=== PATIENT | male | born 1995 | race Caucasian/White ===

== ENCOUNTER 2017-05-05 14:27 | Inpatient (IN) | payer BC, OTHER ==
[~2017-05-05] VITALS: Ht 177.8 cm; Wt 63.5 kg
[2017-05-05] MEDS ORDERED: LORAZEPAM 1 MG TABLET PO PRN ×2 (15:45)
[2017-05-05] MEDS ORDERED: MAG HYDROX/AL HYDROX/SIMETH 30 ML LIQUID UDC PO PRN (15:45)
[2017-05-05] MEDS ORDERED: BUPRENORPHINE HCL 2 MG TAB.SUBL SL PRN (15:45)
[2017-05-05] MEDS ORDERED: MIRALAX 17 GM POWD.PACK PO PRN (15:45)
[2017-05-05] MEDS ORDERED: DICYCLOMINE HCL 20 MG TABLET PO PRN (15:45)
[2017-05-05] MEDS ORDERED: LORAZEPAM 2 MG/1 ML VIAL IM PRN (15:45)
[2017-05-05] MEDS ORDERED: LOPERAMIDE HCL 2 MG CAPSULE PO PRN ×2 (15:45)
[2017-05-05] MEDS ORDERED: ONDANSETRON ODT 4 MG TAB.RAPDIS SL PRN (15:45)
[2017-05-05] MEDS ORDERED: ACETAMINOPHEN 325 MG TABLET PO PRN (15:45)
[2017-05-05] MEDS ORDERED: GABA600T2 PO (16:20)
[2017-05-05] MEDS ORDERED: TRAZ-144 PO (16:20)
[2017-05-05] MEDS ORDERED: CITA40TA22 PO (16:27)
[2017-05-05 16:51] LABS: BASOPHILS % (AUTO) 0.3 % (0.0-2.0); EOSINOPHILS % (AUTO) 0.5 % (0.0-7.0); HEMATOCRIT 44.4 % (40-50); HEMOGLOBIN 14.7 G/DL (14.0-18.0); LYMPHOCYTES # (AUTO) 2.2 K/UL (0.8-4.8); LYMPHOCYTES % (AUTO) 26.2 % (20.5-51.5); MEAN CORPUSCULAR HEMOGLOBIN 27.7 UUG (27.0-31.0); MEAN CORPUSCULAR HGB CONC 33 g/dL (32.0-37.0); MEAN CORPUSCULAR VOLUME 83.5 FL (82.0-92.0); MONOCYTES # (AUTO) 0.6 K/UL (0.1-1.30); MONOCYTES % (AUTO) 6.9 % (0.0-11.0); NEUTROPHILS # (AUTO) 5.4 K/UL (1.8-8.9); NEUTROPHILS % (AUTO) 66.1 % (38.5-71.5); PLATELET COUNT (AUTO) 205 K/UL (150-450); RED BLOOD CELL COUNT(AUTO) 5.32 MIL/UL (4.7-6.1); WHITE BLOOD COUNT (AUTO) 8.2 K/UL (4.0-11.2)
[2017-05-05 17:08] LABS: ALANINE AMINOTRANSFERASE 22 U/L (16-63); ALKALINE PHOSPHATASE 49 U/L (50-136); ASPARTATE AMINOTRANSFERASE 17 U/L (15-37); BILIRUBIN,TOTAL 0.6 mg/dL (0.2-1.0); CARBON DIOXIDE 30 mmol/L (21-32); CHLORIDE 105 mmol/L (98-107); GLUCOSE 80 mg/dL (74-106); MAGNESIUM 1.8 mg/dL (1.8-2.4); POTASSIUM 3.7 mmol/L (3.5-5.1); TOTAL PROTEIN, SERUM 6.7 g/dL (6.4-8.2); UREA NITROGEN, BLOOD 9 mg/dL (7-18)
[2017-05-05 17:13] LABS: ETHANOL < 3 MG/DL (0-0)
[2017-05-05] MEDS: BUPRENORPHINE HCL 2 MG TAB.SUBL SL SCH ×2 (17:22→20:32)
[2017-05-05] MEDS: LORAZEPAM 1 MG TABLET PO SCH ×2 (17:23→20:31)
[2017-05-05 17:27] LABS: *AMPHETAMINE, URINE NEGATIVE (NEGATIVE); *BARBITURATE, URINE NEGATIVE (NEGATIVE); *CANNABINOID, URINE POSITIVE (NEGATIVE); *COCCAINE, URINE NEGATIVE (NEGATIVE); *OPIATE, URINE POSITIVE (NEGATIVE); *PHENCYCLIDINE SCREEN,URINE NEGATIVE (NEGATIVE)
--- NOTE | 2017-05-05 17:57 | NUR ---
Admission Note VS: BP: 96/66 HR:85, SpO2: 99% RA, RR: 16, Temp: 98.3 Pain:2/10 (generalized body aches) Height: 5'10" Weight: 140 LB Allergies: BERNADINE Pt is a 21 y/o male admitted to [facility] on 05/05/17 at 1630 for Heroin and Xanax dependence under the care of Dr. Simpson. Pt denies suicidal and homicidal ideations at this time. Pt denies Chest Pain and SOB. Pt brought Gabapentin 600mg, Trazodone 50mg and Celexa tablets he takes daily. Upon assessment pt's skin integrity is intact. CIWA 8 and COWS 7 upon admission for withdrawal symptoms. NKA, A/Ox4 and able to answer questions necessary for the admission process. Pt is Full Code. VS WNL, Regular Diet. Pt reports Hx of anxiety and depression. Reports Hx of a alcohol abuse by his uncle, his father of heart failure. Pt denies having any seizures in the past. Pt denies having a PCP. Breathing is even and unlabored, SpO2 is 99% on RA. Pt ambulates with a steady gait. Pt reports regular daily BM when he isnt using and every other day when he uses heroin. LBM on 05/05/17 in the am. Pt reports smoking [address] Simpson has been notified, pt has been placed on a 5 day Ativan and 5 day Subutex taper. Urine has been collected for UDS. All needs have been met. Pt has been oriented to the room and the unit. All safety measures in place per hospital policy. Bed in lowest position, side rails up x2 and padded, call-light within reach. Will continue to monitor. Substance Abuse: Xanax: 2-4mg daily orally for 3 weeks. Last Use: 0.5mg in the morning of 05/05/17 Heroin: smokes 1g daily for 3 weeks. Last use: 1g around 6 am on 05/04/17 [place]: smokes 1 g daily for 3 weeks: Last use: 1g throughout the day on 05/05/17
--- NOTE | 2017-05-05 18:50 | NUR ---
End of Shift Endorsed pt to nightshift nurse. Pt is a 21 y/o male admitted to [facility] on 05/05/17 at 1630 for Heroin and Xanax dependence under the care of Dr. Simpson. Pt denies suicidal and homicidal ideations at this time. Pt denies Chest Pain and SOB. Pt brought Gabapentin 600mg, Trazodone 50mg and Celexa tablets he takes daily. Upon assessment pt's skin integrity is intact. CIWA 8 and COWS 7 upon admission for withdrawal symptoms. NKA, A/Ox4 and able to answer questions necessary for the admission process. Pt is Full Code. VS WNL, Regular Diet. Pt reports Hx of anxiety and depression. Reports Hx of a alcohol abuse by his uncle, his father of heart failure. Pt denies having any seizures in the past. Pt denies having a PCP. Breathing is even and unlabored, SpO2 is 99% on RA. Pt ambulates with a steady gait. Pt reports regular daily BM when he isnt using and every other day when he uses heroin. LBM on 05/05/17 in the am. Pt reports smoking [address] Simpson has been notified, pt has been placed on a 5 day Ativan and 5 day Subutex taper. Urine has been collected for UDS. All needs have been met. Pt has been oriented to the room and the unit. All safety measures in place per hospital policy. Bed in lowest position, side rails up x2 and padded, call-light within reach. Will continue to monitor.
--- NOTE | 2017-05-05 19:50 | NUR ---
Start of Shift Note: Report received from day shift nurse. Pt is a 21 yo male admitted today for medically-supervised withdrawal from opiates and benzodiazepines. Pt reports using heroin 1gm/day and Xanax 2-4mg/day for 3 weeks. Pt is on 5-day Subutex and Ativan tapers. Pt received with last COWS=11/CIWA=8, and no PRN medications were given during day shift. Pt reports NKDA/NKFA. Pt is a full code. Pt is on a regular diet. PMHx: anxiety, depression. Pt received in room, and reports anxiety, diaphoresis, chills, and nausea. Bed is in low position and locked, side rails up x2, call light within reach. Will continue to monitor.
[2017-05-05 20:00] VITALS: BP 104/61
[2017-05-05] MEDS: GABAPENTIN 300 MG CAPSULE PO SCH (20:31)
--- NOTE | 2017-05-05 20:34 | NUR ---
PRN Zofran: Patient complains of nausea, denies emesis. Administered PRN Zofran ODT as ordered. Will continue to monitor.
--- NOTE | 2017-05-05 21:05 | NUR ---
PRN Reassessment: Patient denies nausea at this time. PRN Zofran ODT effective.
[2017-05-06 00:23] VITALS: BP 117/69
[2017-05-06] MEDS: ONDANSETRON 4 MG/2 ML VIAL IM PRN ×2 (00:27→19:08)
--- NOTE | 2017-05-06 00:30 | NUR ---
PRN's Ativan 1mg, Zofran IM, and Clonidine: Patient complains of severe anxiety, nausea with emesis x1, and diaphoresis. CIWA is 13. Administered PRN Ativan 1mg PO, PRN Zofran IM, and PRN Clonidine as ordered. Will continue to monitor.
[2017-05-06] MEDS: CLONIDINE HCL 0.1 MG TABLET PO PRN ×2 (00:34→20:32)
--- NOTE | 2017-05-06 01:00 | NUR ---
PRN Reassessment: Patient denies any additional episodes of emesis and reports that he is no longer nauseous. PRN Zofran IM effective.
--- NOTE | 2017-05-06 01:30 | NUR ---
PRN Reassessment: Patient reports that he is feeling less anxious, and that he is no longer nauseous. Patient noted with decrease in diaphoresis. CIWA decreased from 13 to 4 one hour after PRN Ativan 1mg and PRN Clonidine administration.
--- NOTE | 2017-05-06 04:00 | NUR ---
V/S Refused, COWS/CIWA Deferred: Patient refuses ordered 04:00 vital signs for sleep. COWS and CIWA are deferred until patient is awake. All safety precautions are in place. Will continue to monitor. Addendum: 05/06/17 at 0416 by SACHIN MARCH RN Amended: Links added.
--- NOTE | 2017-05-06 06:52 | NUR ---
End of Shift Note: Pt is a 21 yo male admitted to [facility] on 05/05/2017 for medically-supervised withdrawal from opiates and benzodiazepines. Pt reported a PMHx of anxiety and depression. Pt is a full code. Pt reports NKDA/NKFA. Pt is on a regular diet. Pt reported using heroin 1gm/day and Xanax 2-4mg/day for 3 weeks, and was placed on 5-day Subutex and Ativan tapers. Scheduled medication regime managed s/s of withdrawal this shift, in addition to PRN Ativan for elevated CIWA, PRN Zofran IM and ODT for nausea and vomiting, and PRN Clonidine for anxiety. Last COWS=10 at 00:00 and CIWA=4 at 01:30. V/S stable throughout shift. Total fluid intake this shift: 796 ml; output: urine x 2 and BM x 0. Pt is currently in bed, and slept 9 hours this shift. All needs have been attended and met. Pt endorsed to day shift nurse.
--- NOTE | 2017-05-06 07:10 | NUR ---
Start of Shift Endorsement received from nightshift nurse. Pt is a 21 y/o male admitted for Heroin and Xanax dependence. Pt has been placed on a Modified Subutex and Ativan taper by Dr. Simpson. Pt is tolerating the taper, moderately withdrawing AEB COWS 10, CIWA 4 at midnight. Pt reported one episode of emesis. PT received Zofran x2. PT reports medication was effective. Pt also received PRN Ativan and Clonidine for CIWA 13. Pt reports sleeping 9 hours and reports wanting to sleep because he feels tired. VS WNL. Full Code. PT is alert and oriented x4. Pt is in STABLE condition at this time. Remains compliant with medication and diet regimen. All needs have been met, All safety measures in place per hospital policy. Bed in lowest position, side rails up x2, call-light within reach. Will continue to monitor
[2017-05-06 08:00] VITALS: BP 113/70
[2017-05-06] MEDS: GABAPENTIN 300 MG CAPSULE PO SCH ×3 (08:49→20:32)
[2017-05-06] MEDS: BUPRENORPHINE HCL 2 MG TAB.SUBL SL SCH ×3 (08:49→20:32)
[2017-05-06] MEDS: MULTIVITAMINS,THERAPEUTIC TABLET PO SCH (08:50)
[2017-05-06] MEDS: LORAZEPAM 1 MG TABLET PO SCH ×3 (08:50→20:32)
[2017-05-06] MEDS ORDERED: TUBERCULIN,PURIF.PROT.DERIV. 5 TU/0.1 ML TEST ID ONE (09:00)
[2017-05-06] MEDS ORDERED: Medication Not On Formulary EA (Gabapentin 1 TAB) PO SCH (09:45)
[2017-05-06] MEDS ORDERED: GABAPENTIN 300 MG CAPSULE PO SCH (10:15)
[2017-05-06] MEDS: CITALOPRAM 20 MG TABLET PO SCH (10:43)
[2017-05-06 12:00] VITALS: BP 108/70
--- NOTE | 2017-05-06 13:21 | NUR ---
Therapist prompted client about group times. Client stated he will start attending groups when he feels better.
[2017-05-06 16:00] VITALS: BP 118/75
--- NOTE | 2017-05-06 17:21 | NUR ---
Endorsed pt to Jyoti.
--- NOTE | 2017-05-06 17:22 | NUR ---
ASSUMED CARE Assumed care for patient, all pertinent information discussed with primary nurse, will continue to monitor.
--- NOTE | 2017-05-06 19:05 | NUR ---
END OF SHIFT/PRN ZOFRAN Patient alert and oriented x4, compliant with therapeutic plan of care. Patient with admitting Dx: opiate/BZO dependence, continues on 5 day Subutex and 5 day Ativan taper as ordered, well tolerated, no ASE noted. Assumed care for patient at 1722. Per primary nurse patient with last cow score of: 8 and ciwa score of:7. Patient was administered Zofran IM injection for episode of vomiting and nausea during shift, endorsed to fax machine repairer nurse to reassess effectiveness of medication. Patient encouraged adequate PO fluid intake as tolerated. Encouraged to attend group therapies/sessions to learn new coping skills to prevent relapse. Denies any SI/HI. All needs met and rendered, call light kept with in reach, safety measures in place. Patient endorsement report given to fax machine repairer nurse.
--- NOTE | 2017-05-06 19:35 | NUR ---
PRN Zofran Reassessment: Patient denies nausea at this time, reports no additional episodes of emesis. PRN Zofran IM effective.
[2017-05-06 20:00] VITALS: BP 132/84
--- NOTE | 2017-05-06 20:00 | NUR ---
Start of Shift Note: Report received from day shift nurse. Pt is a 21 y/o male admitted on 05/05/2017 for medically-supervised withdrawal from benzodiazepines and opiates. Pt reports using 1gm heroin and 2-4mg Xanax daily for 3 weeks. Pt is on 5-day Ativan and Subutex tapers. Pt received with last COWS=8/CIWA=7, and no PRN medications were given during day shift. Pt is a full code. Pt reports NKDA/NKFA. Pt is on a regular diet. PMHx: anxiety and depression. Pt received in room, and reports anxiety, back and neck pain, myalgia. Bed is in low position and locked, side rails up x2, call light within reach. Will continue to monitor.
[2017-05-06] MEDS: METHOCARBAMOL 750 MG TABLET PO PRN (20:32)
[2017-05-06] MEDS: TRAZODONE 50 MG TABLET PO SCH (20:32)
[2017-05-06] MEDS: IBUPROFEN 600 MG TABLET PO PRN (20:32)
--- NOTE | 2017-05-06 20:35 | NUR ---
PRN's Motrin, Robaxin, and Clonidine: Patient complains of myalgia and 8/10 pain in back and neck. Administered PRN Robaxin and PRN Motrin as ordered. Patient complains of anxiety. Administered PRN Clonidine as ordered. Will continue to monitor.
--- NOTE | 2017-05-06 21:35 | NUR ---
PRN Reassessment: Patient denies pain at this time. PRN Motrin and PRN Robaxin effective. Patient reports mild relief of anxiety with PRN Clonidine administration.
[2017-05-06] MEDS: diphenhydrAMINE 50 MG CAPSULE PO PRN (23:05)
[2017-05-06] MEDS: HYDROXYZINE PAMOATE 25 MG CAPSULE PO PRN (23:05)
--- NOTE | 2017-05-06 23:05 | NUR ---
PRN Vistaril and PRN Benadryl: Patient reports that he is anxious and unable to sleep. Administered PRN Vistaril and PRN Benadryl as ordered. Will continue to monitor.
--- NOTE | 2017-05-07 | NUR ---
V/S Refused, COWS & CIWA Deferred: Pt refuses 00:00 vital signs for sleep. COWS and CIWA are deferred until patient is awake. All safety precautions are in place. Will continue to monitor. Addendum: 05/07/17 at 0313 by SACHIN MARCH RN Amended: Links added.
--- NOTE | 2017-05-07 00:05 | NUR ---
PRN Reassessment: Patient is in bed with eyes closed. Respirations are even and unlabored. No s/s of acute distress noted. PRN Vistaril and PRN Benadryl effective AEB pt's ability to rest.
[2017-05-07 04:00] VITALS: BP 118/72
--- NOTE | 2017-05-07 07:00 | NUR ---
End of Shift Note: Pt is a 21 y/o male admitted to [facility] on 05/05/2017 for medically-supervised withdrawal from benzodiazepines and opiates. Pt reported a PMHx of anxiety and depression. Pt is a full code. Pt reports NKDA/NKFA. Pt is on a regular diet. Pt reported using 1gm heroin and 2-4mg Xanax daily for 3 weeks, and was placed on 5-day Ativan and Subutex tapers. Scheduled medication regime managed s/s of withdrawal this shift, in addition to PRN Zofran IM for nausea/vomiting, PRN Robaxin for myalgia, PRN Motrin for back pain, and PRN Clonidine and PRN Vistaril for anxiety. Last COWS=2/CIWA=6 at 04:00. V/S stable throughout shift. Total fluid intake this shift: 796 ml; output: urine x 2 and BM x 0. PRN Benadryl was given for insomnia, which was not effective as pt slept only 3 hours this shift. Pt is currently in bed, all needs have been attended and met. Pt endorsed to day shift nurse.
--- NOTE | 2017-05-07 07:20 | NUR ---
Start of Shift note Patient is a 21 year old male admitted for heroin and xanax dependence on 05/05/17. He has no history of seizures and is on day 3 of a five day Subutex and Ativan taper. Patient has past medical history of Anxiety and depression as well as Hepatitis C. He has NKA, is a full code and on a regular diet. Patient last COWS 2 CIWA 6 reported by slot shift manager. Patient currently resting in bed, with no complaints offered. Call light in reach, bed on lowest position and locked with 2 side rails up. Will continue to monitor.
[2017-05-07 08:00] VITALS: BP 113/73
[2017-05-07] MEDS ORDERED: BUPRENORPHINE HCL 2 MG TAB.SUBL SL SCH (09:00)
[2017-05-07] MEDS: CITALOPRAM 20 MG TABLET PO SCH (09:56)
[2017-05-07] MEDS: LORAZEPAM 1 MG TABLET PO SCH ×4 (09:57→20:23)
[2017-05-07] MEDS: GABAPENTIN 300 MG CAPSULE PO SCH ×3 (09:57→20:24)
[2017-05-07] MEDS: MULTIVITAMINS,THERAPEUTIC TABLET PO SCH (09:58)
[2017-05-07 12:00] VITALS: BP 112/67
[2017-05-07 14:09] LABS: HEPATITIS B SURFACE AG Negative (Negative)
[2017-05-07] MEDS: IBUPROFEN 600 MG TABLET PO PRN ×2 (14:42→22:04)
[2017-05-07] MEDS: METHOCARBAMOL 750 MG TABLET PO PRN ×2 (14:42→23:22)
[2017-05-07] MEDS: BUPRENORPHINE HCL 2 MG TAB.SUBL SL SCH ×2 (14:42→20:24)
--- NOTE | 2017-05-07 14:42 | NUR ---
PRN medication Patient with C/O back pain of a 04/11. Patient requested and was given PRN Robaxin and Ibuprofen. is aware.
--- NOTE | 2017-05-07 15:42 | NUR ---
Reassessment of patient Patient reports minimal effectiveness with Robaxin and Motrin. With current pain a 5. Patient states he is comfortable and does not want any further medication at this time. Dr Simpson aware.
[2017-05-07 16:00] VITALS: BP 118/70
--- NOTE | 2017-05-07 17:00 | NUR ---
PRN medication administration Patient with current heart rate 120. Patient reports anxiety and administered PRN Vistaril per MD order. Dr Simpson aware. Patient without any other physical complaints. Will continue to monitor.
[2017-05-07] MEDS: HYDROXYZINE PAMOATE 25 MG CAPSULE PO PRN ×2 (17:19→23:22)
--- NOTE | 2017-05-07 18:00 | NUR ---
Reassessment of patient Patient returned to unit after smoking cigarette. appears to continue to display anxiety, and patients HR assessed at 125. Patient encouraged to increase fluids and rest and will reassess again in 30 minutes.
--- NOTE | 2017-05-07 18:28 | NUR ---
Reassessment of patient. Patient resting in bed with no current physical complaints Patients HR reassessed at 100. No physical complaints offered. Encouraged patient to continue with relaxation and hydration.
--- NOTE | 2017-05-07 19:09 | NUR ---
End of shift note Pt was admitted for opiate and benzo dependence. Pt has a PMHx of anxiety and depression. Pt is on an ativan and subutex taper and tolerating well. Pt had a recent COWS of 2 and CIWA of 2 at 1600. During the shift the pt had PRN motrin, robaxin and vistaril with some effectiveness. Pt is currently pacing the unit, pt has no complaints at this time. Pt refused breakfast and lunch, ate 100% of dinner, drank 1100ml of fluids and had 2 voids during the shift. SBAR report to be given to oncoming shift. All needs addressed at this time.
[2017-05-07 20:00] VITALS: BP 118/81
--- NOTE | 2017-05-07 20:00 | NUR ---
START OF SHIFT Received report from day shift nurse. Pt is walking around the unit. He is a 21 yo male admitted to [facility] on 05/05 for opiate and BZD dependence. He is A&O x4 and ambulatory. NKA, full code status, and on a regular diet. He has a PMH of anxiety and depression. On admission he reported using heroin 1 gram per day, Xanax 2-4mg per day, and marijuana 1 gram per day. 5 day subutex and 5 day ativan tapers started 05/05. He reports that he has been pacing around the unit due to anxiety and has lower back ache. He is observed to have a flat affect, moist skin, and fine tremors. Encouraged relaxation. Tapers due tonight. Fall and seizure precautions in place. Bed is down with call light in reach.
[2017-05-07] MEDS: TRAZODONE 50 MG TABLET PO SCH (20:23)
[2017-05-07] MEDS: CLONIDINE HCL 0.1 MG TABLET PO SCH (20:23)
[2017-05-07] MEDS: diphenhydrAMINE 50 MG CAPSULE PO PRN (22:04)
--- NOTE | 2017-05-07 22:05 | NUR ---
PRN Motrin and Benadryl Pt reports low back ache and neck ache 5/10. He also reports inability to sleep. PRN Motrin and Benadryl administered.
--- NOTE | 2017-05-07 23:05 | NUR ---
PRN Motrin and Benadryl reassessment PRN Motrin sightly effective. Pt reports back and neck ache reduced to 4/10. He has not yet been able to fall asleep.
[2017-05-07 23:20] VITALS: BP 117/77
--- NOTE | 2017-05-07 23:23 | NUR ---
PRN Robaxin and Vistaril Pt reports low back ache and neck ache 4/10. He also reports feeling anxious, restless, and unable to fall asleep. PRN Robaxin and Vistaril administered.
[2017-05-08] VITALS: BP 117/77
--- NOTE | 2017-05-08 04:00 | NUR ---
COWS/CIWA/VS PATIENT ASLEEP. COWS/CIWA UNABLE TO ASSESS. RESPIRATION EVEN AND UNLABORED. NO S/S OF DISTRESS.SAFETY MEASURES IN PLACE. CALL LIGHT IN REACH. WILL CONTINUE TO MONITOR Addendum: 05/09/17 at 0649 by FRANCIA VELÁSQUEZ LVN ERROR: CHARTING
--- NOTE | 2017-05-08 04:00 | NUR ---
0400 Vitals refused/COWS and CIWA deferred Pt refused to be woken for 0400 vitals. He is lying in bed resting with eyes closed. Respirations even and unlabored. COWS and CIWA ordered Q4HWA. Safety measures in place.
--- NOTE | 2017-05-08 07:09 | NUR ---
END OF SHIFT Report provided to day shift nurse. Pt is lying in bed resting. He is a 21 yo male admitted to [facility] on 05/05 for opiate and BZD dependence. He is A&O and ambulatory. NKA, full code status, and on a regular diet. He has a PMH of anxiety and depression. Upon admission he admitted to using heroin 1 gram per day, Xanax 2-4mg per day, and marijuana 1 gram per day. 5 day subutex and 5 day ativan tapers started 05/05. Pt had difficulty sleeping. PRN Motrin, Robaxin, Vistaril, and Benadryl administered. Last COWS 4 and CIWA 3. He drank 1000mL and slept for 4 hours. Fall and seizure precautions in place. Bed is down with call light in reach.
--- NOTE | 2017-05-08 07:10 | NUR ---
Start of Shift Notes: Received patient in his room. Alert and verbally responsive. Oriented x 4. Able to make his needs known. Respirations even and unlabored. No SOB noted. Skin warm and dry to touch. Abdomen soft and non-distended with (+) BS in all 4 quadrants. No complains of N/V/D or constipation noted. No complains of abdominal cramps noted at this time. Bladder non-distended. No complains of dysuria noted. Voids independently. Ambulatory ad ne with steady gait.. Patient is a 21 year old male admitted for opiat, BZO dependence who was palced on a 5-day Subtuex and 5-day Ativan taper as ordered. NO adverse reactions noted. Has past medical hx of anxiety, depression, NKA. FULL CODE. Regular diet. On fall and seizure precautions. PRN Motrin, Robaxin, Vistaril, Benadryl were given during the night. Slept for 4 hours. Last COWS 4/CIWA 3. On fall and seizure precautions. Educated patient on the current plan of care for the day and his medication regimen. Encouraged oral fluid intake and encouraged group participation to learn new skills to prevent relapse. All needs met and attended. Will continue to monitor closely.
[2017-05-08 08:00] VITALS: BP 100/58
[2017-05-08] MEDS: CLONIDINE HCL 0.1 MG TABLET PO SCH ×2 (08:23→20:44)
[2017-05-08] MEDS: LORAZEPAM 1 MG TABLET PO SCH ×3 (08:23→20:44)
[2017-05-08] MEDS: BUPRENORPHINE HCL 2 MG TAB.SUBL SL SCH ×3 (08:23→20:44)
[2017-05-08] MEDS: GABAPENTIN 300 MG CAPSULE PO SCH ×3 (08:23→20:43)
[2017-05-08] MEDS: CITALOPRAM 20 MG TABLET PO SCH (08:23)
[2017-05-08] MEDS: MULTIVITAMINS,THERAPEUTIC TABLET PO SCH (08:23)
[2017-05-08 12:00] VITALS: BP 110/67
--- NOTE | 2017-05-08 12:29 | NUR ---
Psych MD Visit: Patient seen and examined by Dr. Forrest at this time. Informed MD of patient's trending sleep patterns of inability to sleep well during the night. Per MD, he will enter in orders.
--- NOTE | 2017-05-08 13:28 | NUR ---
Clinician encouraged client to attend the afternoon group. Client asked if he was excused from the morning group because he was sleeping and he wants his cigarettes. Client states he will attend group at 3:30
[2017-05-08] MEDS: METHOCARBAMOL 750 MG TABLET PO PRN ×2 (14:33→22:39)
[2017-05-08] MEDS: IBUPROFEN 600 MG TABLET PO PRN (14:33)
--- NOTE | 2017-05-08 14:33 | NUR ---
Ibuprofen 600 mg Po given/Robaxin 750 mg PO given: Patient noted with complain of 6/10 headache and 6/10 generalized muscle aches and pains related to withdrawal symptoms. Medicated patient with Ibuprofen 600 mg PO and Robaxin 750mg PO after non-pharmacological interventions were ineffective. Will continue to monitor for effectiveness.
--- NOTE | 2017-05-08 15:33 | NUR ---
Re-assessment: Per patient, PRN Robaxin was effective in reducing patient's body aches and pains and headache. Repots PL to be 2/10.
[2017-05-08 16:00] VITALS: BP 115/83
--- NOTE | 2017-05-08 19:06 | NUR ---
End of Shift Notes: Patient continues to be on 5-day Subutex and 5-day Ativan taper as ordered. No adverse reactions noted. Patient is tolerating taper well. VS monitored closely q 4 hours. No significant abnormalities noted. Patients withdrawal symptoms were closely monitored. Patients initial COWS 4/CIWA 3, patient presented with anxiety, agitation, chills and hot flashes. Last COWS 3/CIWA 2. Per patient, Subutex and Ativan has been helping him with his withdrawal symptoms. Compliant with care and treatment. Requires encouragement to participate in group and activities. All needs met and attended. Will continue to monitor closely.
[2017-05-08 20:00] VITALS: BP 122/79
--- NOTE | 2017-05-08 20:00 | NUR ---
START OF SHIFT NOTE PATIENT ALERT AND ORIENTED X 4. RESPIRATION EVEN AND UNLABORED . PATIENT C/O UNABLE TO PASS STOOL, REPORTS ANXIOUS , SWEATING AND ABDOMINAL CRAMPING. RECEIVED REPORT FROM DAY SHIFT NURSE. PATIENT IS A 21 YEAR OLD MALE, ADMITTED FOR HEROIN AND XANAX DEPENDENCE. PATIENT IS ON 4TH DAY OF HIS 5 DAY ATIVAN AND 5 DAY SUBUTEX TAPER. PATIENT IS FULL CODE, REGULAR DIET AND NO KNOWN ALLERGY. PATIENT REPORTS PMH OF ANXIETY AND DEPRESSION. PATIENT DOES NOT HAVE SEIZURE HISTORY. PATIENT WAS GIVEN PRN MOTRIN AND ROBAXIN. TRAZADONE WAS INCREASED. SKIN INTACT. ON FALL PRECAUTION. SAFETY MEASURES IN PLACE. CALL LIGHT IN REACH. WILL CONTINUE TO MONITOR.
[2017-05-08] MEDS: TRAZODONE 100 MG TABLET PO SCH (20:44)
--- NOTE | 2017-05-08 20:45 | NUR ---
PRN MIRALAX ADMINISTRATION PATIENT C/O CONSTIPATION. PRN MIRALAX GIVEN AND ENCOURAGE FLUIDS. WILL MONITOR FOR EFFECTIVENESS
[2017-05-08] MEDS: HYDROXYZINE PAMOATE 25 MG CAPSULE PO PRN (22:39)
--- NOTE | 2017-05-08 22:39 | NUR ---
PRN ROBAXIN AND VISTARIL GIVEN PATIENT C/O BACK PAIN 6/10 AND MILD ANXIETY. PRN ROBAXIN AND VISTARIL GIVEN. WILL MONITOR FOR EFFECTIVENESS
--- NOTE | 2017-05-08 23:39 | NUR ---
PRN ROBAXIN AND VISTARIL RE-ASSESSMENT PATIENT'S ANXIETY SUBSIDED. LESS ANXIOUS. PAIN LEVEL IS NOW 2/10. ROBAXIN AND VISTARIL HELPFUL. WILL CONTINUE TO MONITOR
[2017-05-09] VITALS: BP 94/56
--- NOTE | 2017-05-09 04:00 | NUR ---
COWS/CIWA/VS PATIENT ASLEEP. COWS/CIWA UNABLE TO ASSESS. RESPIRATION EVEN AND UNLABORED. NO S/S OF DISTRESS.SAFETY MEASURES IN PLACE. CALL LIGHT IN REACH. WILL CONTINUE TO MONITOR
--- NOTE | 2017-05-09 07:05 | NUR ---
Start of Shift Endorsement received from nightshift nurse. Pt is a 21 y/o male admitted for Heroin and Xanax dependence. Pt has been placed on a Modified Subutex and Ativan taper by Dr. Simpson. Pt is tolerating the taper, mildly withdrawing AEB COWS 2, CIWA 2 at midnight. Pt reports generalized body aches throughout the night. Pt received PRN Miralax, Robaxin and Vistaril. Pt reports sleeping 6 hours . VS WNL. Full Code. PT is alert and oriented x4. Pt is in STABLE condition at this time. Remains compliant with medication and diet regimen. All needs have been met, All safety measures in place per hospital policy. Bed in lowest position, side rails up x2, call-light within reach. Will continue to monitor
--- NOTE | 2017-05-09 07:08 | NUR ---
PRN MIRALAX RE-ASSESSMENT PATIENT HAD BM DURING SHIFT. MIRALAX EFFECTIVE. CONTINUE TO ENCOURAGE FLUIDS
--- NOTE | 2017-05-09 07:18 | NUR ---
END OF SHIFT NOTE PATIENT REMAIN ALERT AND ORIENTED X 4. RESPIRATION EVEN AND UNLABORED . PATIENT C/O UNABLE TO PASS STOOL, REPORTS ANXIOUS , SWEATING AND ABDOMINAL CRAMPING BEGINNING OF SHIFT. PATIENT CONTINUE ON ATIVAN AND SUBUTEX TAPER, TOLERATED WELL AND NO ADVERSE REACTION. PATIENT WAS GIVEN PRN MIRALAX, ROBAXIN AND VISTARIL. MIRALAX EFFECTIVE. PATIENT HAD BM DURING SHIFT. ENCOURAGE FLUIDS . SKIN INTACT. ON FALL PRECAUTION. SAFETY MEASURES IN PLACE. CALL LIGHT IN REACH. WILL CONTINUE TO MONITOR. SLEPT 6 HOURS. FLUID INTAKE 1,210 ML. VOIDED X 3 . NO BM. LAST COWS 2 AND CIWA 1 .
[2017-05-09 08:00] VITALS: BP 108/67
[2017-05-09] MEDS: CLONIDINE HCL 0.1 MG TABLET PO SCH ×2 (09:11→20:40)
[2017-05-09] MEDS: CITALOPRAM 20 MG TABLET PO SCH (09:11)
[2017-05-09] MEDS: BUPRENORPHINE HCL 2 MG TAB.SUBL SL SCH ×2 (09:11→20:41)
[2017-05-09] MEDS: GABAPENTIN 300 MG CAPSULE PO SCH ×3 (09:11→20:40)
[2017-05-09] MEDS: MULTIVITAMINS,THERAPEUTIC TABLET PO SCH (09:11)
[2017-05-09] MEDS: IBUPROFEN 600 MG TABLET PO PRN (09:11)
[2017-05-09] MEDS: LORAZEPAM 1 MG TABLET PO SCH ×2 (09:11→20:39)
[2017-05-09 12:00] VITALS: BP 120/75
[2017-05-09] MEDS: METHOCARBAMOL 750 MG TABLET PO PRN ×2 (12:21→20:54)
[2017-05-09] MEDS: HYDROXYZINE PAMOATE 25 MG CAPSULE PO PRN ×2 (12:21→22:44)
[2017-05-09 16:00] VITALS: BP 113/71
--- NOTE | 2017-05-09 18:48 | NUR ---
End of Shift Endorsement given to nightshift nurse. Pt is a 21 y/o male admitted for Heroin and Xanax dependence. Pt has been placed on a Modified Subutex and Ativan taper by Dr. Simpson. Pt is tolerating the taper, moderately withdrawing AEB COWS 6, CIWA 3 at 1600. Pt reports generalized body aches and anxiety. Pt received PRN Robaxin and Vistaril. Pt participated in groups and activities. Educated pt on s/e of medications and encouraged pt to drink more fluids. Educated pt on deep breathing techniques to help relieve mild to moderate anxiety. Intake: 1700ml, Void x5, BM x0 . VS WNL. Full Code. PT is alert and oriented x4. Pt is in STABLE condition at this time. Remains compliant with medication and diet regimen. All needs have been met, All safety measures in place per hospital policy. Bed in lowest position, side rails up x2, call-light within reach. Will continue to monitor
[2017-05-09 20:00] VITALS: BP 116/79
--- NOTE | 2017-05-09 20:00 | NUR ---
1999 Patient received awake, alert and just returning back o his room # [id number] from [facility] in recreation room. Gait is steady. Patient responds to nurse's greeting and introduction with good eye contact but very flat, " Hello, how are you?" Patient's color is pink and his skin is clean, warm, dry and intact. Patient is oriented to person, place, day, date, and his personal situation. Reoriented to time. Patient states, " I get confused about the time sometimes and there's no clock in here". Patient states that he regularly attends [facility] and he has been eating his regular diet trays and taking various fluids ad ne with no gastric issues. Patient denies any pain or other discomforts at this time and he voices no requests for anything. Vital signs are: 97.9-116-16 116/79, O2 Sat 98%, COWS 6, CIWA 4. Patient was admitted on 05/05/17 for: Heroin, Xanax and Marijuana withdrawal and he is currently on a 5-Day Ativan medication taper and a 5-Day Subutex medication taper for withdrawal symptoms, and he has apparently been tolerating these medications well. Patient is cooperative and verbally appropriate when interacting with nurse, though mood/affect is both somewhat withdrawn and anxious at the same time. Bed is locked and in lowest position, bed rails are up X 1 and call light within patient's easy reach.
[2017-05-09] MEDS: TRAZODONE 100 MG TABLET PO SCH (20:40)
--- NOTE | 2017-05-09 20:54 | NUR ---
PRN MEDICATION: Prn Robaxin 750 mg p.o. given per request for c/o back and neck pain 6-7/10 pain scale.
--- NOTE | 2017-05-09 21:54 | NUR ---
REASSESSMENT PRN MEDICATION: Patient is downstairs on hospital patio for smoke break. Unable to assess patient at this time.
--- NOTE | 2017-05-09 22:44 | NUR ---
PRN MEDICATION: Prn Vistaril 25 mg p.o. given per request for c/o anxiety.
--- NOTE | 2017-05-10 | NUR ---
Patient is downstairs on hospital patio and he does not want vital signs to be done at this time.
--- NOTE | 2017-05-10 04:00 | NUR ---
Patient refused to be awakened for V/S be done at this time.
--- NOTE | 2017-05-10 06:30 | NUR ---
0630 Patient slept a total of 4 hours and he had 3 voids and no stools. Total intake was 1,210 ml p.o. Prn medications given noted separately per floor protocol. V/SS afebrile, last COWS 6 , last CIWA 4 at 1999. Patient is presently sleeping comfortably in stable condition with eyes closed and respirations quiet, even, unlabored at 12.
--- NOTE | 2017-05-10 07:22 | NUR ---
BEGINNING OF SHIFT Patient endorsement report received from assistant casino shift manager nurse, all pertinent information discussed. patient is a 21 year old male admitted on: 05/05/2017, with admitting Dx: Opiate/BZO dependence. Patient with past medical history of: Anxiety, and depression. Patient with substance use of: Heroin 1 gram daily for 3 weeks, Xanax 2-4mg daily for 3 weeks, and marijuana 1 gram daily for 3 weeks. Patient placed on a 5 day Ativan and 5 day Subutex taper as ordered, patient currently on day 5 of taper, will monitor closely during shift. Seizure and Fall precautions observed at all times. Patient skin is intact, Patient Received PRN: Robaxin and Vistaril during assistant casino shift manager, per assistant casino shift manager medication effective, last ciwa score of: 4, and last cow score of: 6. Patient slept for 7 hours. Patient continues under close observation. Safety measures in place. will continue to monitor.
[2017-05-10 08:09] VITALS: BP 100/67
[2017-05-10] MEDS: CITALOPRAM 20 MG TABLET PO SCH (08:27)
[2017-05-10] MEDS: MULTIVITAMINS,THERAPEUTIC TABLET PO SCH (08:27)
[2017-05-10] MEDS: GABAPENTIN 300 MG CAPSULE PO SCH ×3 (08:27→20:56)
[2017-05-10 08:28] VITALS: BP 101/72
[2017-05-10] MEDS: CLONIDINE HCL 0.1 MG TABLET PO SCH ×2 (08:29→20:56)
[2017-05-10] MEDS ORDERED: BUPRENORPHINE HCL 2 MG TAB.SUBL SL SCH (09:00)
[2017-05-10] MEDS: METHOCARBAMOL 750 MG TABLET PO PRN (11:50)
--- NOTE | 2017-05-10 11:50 | NUR ---
PRN ROBAXIN Patient c/o muscle aches and back pain 04/11, administered Robaxin as ordered, will monitor effectiveness of medication.
--- NOTE | 2017-05-10 12:50 | NUR ---
ROBAXIN REASSESSMENT Patient reports medication effective, pain level 0/10 will continue to monitor.
[2017-05-10 13:11] VITALS: BP 107/70
[2017-05-10] MEDS ORDERED: METH-406 PO (15:27)
[2017-05-10] MEDS ORDERED: HYDR-3895 PO (15:27)
[2017-05-10] MEDS ORDERED: CLON0.1T14 PO (15:27)
[2017-05-10 17:04] LABS: *AMPHETAMINE, URINE NEGATIVE (NEGATIVE); *BARBITURATE, URINE NEGATIVE (NEGATIVE); *CANNABINOID, URINE POSITIVE (NEGATIVE); *COCCAINE, URINE NEGATIVE (NEGATIVE); *OPIATE, URINE NEGATIVE (NEGATIVE); *PHENCYCLIDINE SCREEN,URINE NEGATIVE (NEGATIVE)
[2017-05-10 17:21] VITALS: BP 111/70
--- NOTE | 2017-05-10 19:17 | NUR ---
END OF SHIFT Patient alert and oriented x4, vital signs stable during shift. patient is a 21 year old male admitted on: 05/05/2017, with admitting Dx: Opiate/BZO dependence. Patient with past medical history of: Anxiety, and depression. Patient with substance use of: Heroin 1 gram daily for 3 weeks, Xanax 2-4mg daily for 3 weeks, and marijuana 1 gram daily for 3 weeks. Patient completed 5 day Ativan and 5 day Subutex taper as ordered, well tolerated, no ASE noted. Encouraged adequate PO fluid intake as tolerated. 0900 assessment patient presented with mild bone and joint aches, irritable, anxiety, and mild agitation with cow score of: 3 and ciwa score of: 4; 1300 assessment patient presented with: heart rate of 98, mild anxiety with cow score of: 2 and ciwa score of: 1; 1700 assessment patient presented with: heart rate of 94, mild anxiety, with cow score of: 2 and ciwa score of: 1. Patient received PRN: Robaxin during shift, medication effective. Patient is scheduled to discharge tomorrow, noted self motivated towards sobriety. Urine drug screen collected. Encouraged to attend group therapies/sessions to learn new coping skills to prevent relapse. Safety measures i place, call light kept with in reach. Patient endorsed to night warehouse manager nurse, all pertinent information discussed.
[2017-05-10 20:00] VITALS: BP 124/77
--- NOTE | 2017-05-10 20:00 | NUR ---
1999 Patient received awake, alert and just returning to his room # 314 from [facility]. Gait is steady and brisk. Patient responds to nurse's greeting with flat, " Hi". Patient is oriented to person, place, day, date, time and his personal situation. Patient's color is pink and his skin is clean, warm, dry and intact. Patient states that he is eating his regular diet trays and taking various fluids ad ne with no gastric issues at this time. Patient denies any pain or other discomforts and offers no requests for anything at this time. Patient states that he has been attending all [employer] groups and has been compliant with all that is asked of him here. Vital signs are: 98.6-88-16 124/77, O2 Sat 98%, COWS 6 CIWA 4 . Patient was admitted on 05/05/17 for: Heroin, Xanax and Marijuana withdrawal and he has completed both his 5-Day Ativan and 5-Day Subutex medication tapers at this time. Patient is scheduled to be discharged tomorrow AM to a rehab facility. Patient is cooperative and verbally appropriate when interacting with nurse, though his mood/affect is mildly anxious. Bed is locked and in lowest position, bed rails are up X 1 and call light within patient's easy reach.
[2017-05-10] MEDS: TRAZODONE 100 MG TABLET PO SCH (20:56)
[2017-05-10] MEDS: HYDROXYZINE PAMOATE 25 MG CAPSULE PO PRN (20:57)
--- NOTE | 2017-05-10 20:57 | NUR ---
PRN MEDICATIONS: Prn Bentyl 20 mg p.o. given per c/o stomach cramps and Prn Vistaril 25 mg p.o. given per request for c/o anxiety.
--- NOTE | 2017-05-10 21:57 | NUR ---
REASSESSMENT PRN MEDICATIONS: Patient is downstairs on hospital patio for smoke break. Unable to reassess patient at this time.
--- NOTE | 2017-05-11 | NUR ---
Patient refused to be awakened for vital signs to be done at this time.
--- NOTE | 2017-05-11 04:00 | NUR ---
Patient refused to be awakened for vital signs to be done at this time.
--- NOTE | 2017-05-11 06:30 | NUR ---
0630 Patient slept a total of 7 hours and he had 3 voids and no stools. Total intake was 1,450 ml p.o. Prn medications given noted separately per floor protocol. V/SS afebrile, last COWS 6, last CIWA 4 at 1999. Patient is presently sleeping comfortably in stable condition with eyes closed and respirations quiet, even, unlabored at 12.
--- NOTE | 2017-05-11 07:17 | NUR ---
Start of shift note; Received report from night nurse. Patient is a 21 year old male admitted on 05/05/17 for Opiate/Benzo withdrawals. Patient completed his 5 day Ativan and 5 day Subutex taper, no adverse reactions noted. Patient reported history of anxiety, depression. NKA, full code status and on a regular diet. Patient is medically cleared for discharge today. All safety measures secured. Will continue to monitor patient.
--- NOTE | 2017-05-11 07:22 | NUR ---
Start of shift note; Received report from night nurse. Patient is a 24 year old female admitted on 05/06/17 for ETOH withdrawals. Patient was placed on 5 day Ativan taper, no adverse reactions noted. Patient reported history of anxiety, depression, fibromyalgia, impetigo, lyme disease, gastritis. Patient's last CIWA score is 5 at 2000 per endorsement. Skin is dry and intact. Patient is on fall and seizure precaution. Bed in lowest position, call light within reach. Will continue to monitor patient. Addendum: 05/11/17 at 0734 by PIERRE EARL LVN DISREGARD ABOVE CHARTING, WRONG PATIENT DOCUMENTATION.
[2017-05-11 08:00] VITALS: BP 109/76
[2017-05-11 08:16] VITALS: BP 109/70
[2017-05-11] MEDS: GABAPENTIN 300 MG CAPSULE PO SCH (08:16)
[2017-05-11] MEDS: MULTIVITAMINS,THERAPEUTIC TABLET PO SCH (08:16)
[2017-05-11] MEDS: CITALOPRAM 20 MG TABLET PO SCH (08:16)
[2017-05-11] MEDS: CLONIDINE HCL 0.1 MG TABLET PO SCH (08:16)
--- NOTE | 2017-05-11 09:30 | NUR ---
Discharge note; Patient is AOX4. All patient's belongings, valuables, medications and prescriptions given to patient. Patient completed treatment without any adverse reactions. Patient denies pain and suicidal ideations. Patient left the facility at exactly 0930 on 05/11/17. Met all patient's needs.
== END 2017-05-11 09:30 | DRG 895 ==
LOC: SRC 15:27
PROVIDERS: ADMIT Internal Medicine; ATTEND Internal Medicine
PROC: HZ2ZZZZ Detoxification Services for Substance Abuse Treatment (ICD-10-PCS; principal; 2017-05-05)
PROC: HZ31ZZZ Individual Counseling for Substance Abuse Treatment, Behavioral (ICD-10-PCS; 2017-05-06)
PROC: HZ41ZZZ Group Counseling for Substance Abuse Treatment, Behavioral (ICD-10-PCS; 2017-05-09)
DX: F11.23 Opioid dependence with withdrawal (principal); F33.2 Major depressive disorder, recurrent severe without psychotic features; F10.10 Alcohol abuse, uncomplicated; Y90.9 Presence of alcohol in blood, level not specified; F17.210 Nicotine dependence, cigarettes, uncomplicated; F41.9 Anxiety disorder, unspecified; Z82.49 Family history of ischemic heart disease and other diseases of the circulatory system; Z81.3 Family history of other psychoactive substance abuse and dependence; F12.10 Cannabis abuse, uncomplicated
CPT/HCPCS: 36415; 70030-TC; 80307; 80346; 80349; 80361; 83735; 85025; 86580; 86592; 86705; 86803; 87340; 87806; G0480; J2405; Q0162; Q0163